=== PATIENT | female | born 1990 | race Two or more races ===

== ENCOUNTER 2024-11-09 12:00 | Emergency (ER) | payer MEDICAID, SELFPAY ==
[2024-11-09 12:01] VITALS: BMI 231.7
[2024-11-09 12:24] VITALS: BP 129/92; PULSE 82; RESP 18; TEMP 36.9; O2SAT 98
--- NOTE | 2024-11-09 12:31 | XR_ITS ---
Examination: Lumbar spine, 5 views Technique: Lumbar spine AP, lateral, coned lateral lower lumbar spine, bilateral obliques 5 views Exam date and time: November 09, 2024 1301 hours INDICATIONS: Low back pain today no injury. FINDINGS: Adequate alignment lumbar vertebral bodies on the lateral view Mild disc narrowing L4-L5, L5-S1 No spondylolisthesis No lumbar fracture IMPRESSION: Mild disc narrowing L4-L5, L5-S1
--- NOTE | 2024-11-09 12:32 | EDNOTE_ITS ---
<Statement entered by Isela Carrington MD - 11/11/24 06:15> As co-signing physician, I was present and available for consult prn. I concur with the plan and care as documented by the midlevel provider. ED Back Injury Pain RME/HPI General Chief Complaint: Back Pain/Injury Stated Complaint: LOWER BACK PAIN TODAY Time Seen by Provider: 11/09/24 12:18 Source: patient Arrival date/time: 11/09/24 12:00 33-year-old female with no known medical history presents to the emergency room with a chief complaint of lumbar back pain after getting out of her car this morning. Mode of arrival: ambulatory Limitations: no limitations Related Data Previous Rx's ?Medication ?Instructions ?Recorded cyclobenzaprine 10 mg tablet 10 mg PO TID #14 tabs Allergies Allergy/AdvReac Type Severity Reaction Status Date / Time No Known Allergies Allergy Verified 11/09/24 12:03 Review of Systems Review of Systems Systems Reviewed: All systems reviewed, normal except as documented Constitutional Constitutional: Reports system reviewed and no additional complaints, except as documented, Denies fatigue, Denies fever(s), Denies headache(s) and Denies weakness Eyes Eyes: Reports system reviewed and no additional complaints, except as documented, Denies blurry vision and Denies change in vision ENT Ears, Nose, Mouth, and Throat: Reports system reviewed and no additional complaints, except as documented, Denies otalgia, Denies headache(s), Denies nasal congestion, Denies throat swelling and Denies vertigo Cardiovascular Cardiovascular: Reports system reviewed and no additional complaints, except as documented, Denies chest pain, Denies dyspnea and Denies dyspnea on exertion Respiratory Respiratory: Reports system reviewed and no additional complaints, except as documented, Denies chest congestion, Denies cough, Denies dyspnea, Denies dyspnea on exertion and Denies wheezing Gastrointestinal Gastrointestinal: Reports system reviewed and no additional complaints, except as documented, Denies abdominal pain, Denies cramping, Denies nausea and Denies vomiting Genitourinary Genitourinary: Reports system reviewed and no additional complaints, except as documented Musculoskeletal Musculoskeletal: Reports system reviewed and no additional complaints, except as documented and Reports back pain Integumentary/Breasts Skin/Breast: Reports system reviewed and no additional complaints, except as documented and Denies wounds Neurologic Neurologic: Reports system reviewed and no additional complaints, except as documented, Denies confusion, Denies headache(s), Denies lack of coordination, Denies vertigo and Denies weakness Psychiatric Psychiatric: Reports system reviewed and no additional complaints, except as documented, Denies anxiety, Denies confusion, Denies depression, Denies paranoia, Denies suicidal ideation and Denies tactile hallucinations Endocrine Endocrine: Reports system reviewed and no additional complaints, except as documented and Denies fatigue Hematologic/Lymphatic Hematologic/Lymphatic: Reports system reviewed and no additional complaints, except as documented and Denies lymphadenopathy Allergic/Immunologic Allergic/Immunologic: Reports system reviewed and no additional complaints, except as documented, Denies throat swelling, Denies urticaria and Denies wheezing Past Medical History Past Medical History CARDIAC: Negative Congestive Heart Failure RESPIRATORY: Negative Chronic Obstructive Pulmonary Disease (COPD) GENITOURINARY: Negative Renal Disease ENDOCRINE: Negative Diabetes Mellitus Type 1 or Diabetes Mellitus Type 2 Social History SMOKING STATUS: Never smoker ED Exam General Limitations: Present no limitations General appearance: Present alert and in no apparent distress Head Head exam: Present atraumatic Eye Eye exam: Present normal appearance, PERRL and EOMI ENT ENT exam: Present normal exam, normal oropharynx and mucous membranes moist Neck Neck exam: Present normal inspection, full ROM and trachea midline Chest Chest inspection: Present normal inspection and symmetric chest wall rise Respiratory Respiratory exam: Present normal lung sounds bilaterally Cardiovascular Cardiovascular exam: Present regular rate, normal rhythm and normal heart sounds Abdominal Exam Abdominal exam: Present soft and normal bowel sounds Extremities Exam Extremities exam: Present normal inspection and full ROM Back Exam Back exam: Present normal inspection, full ROM and vertebral tenderness; Absent CVA tenderness (R), CVA tenderness (L), sciatic notch tenderness (R) or sciatic notch tenderness (L) Neurological Exam Neurological exam: Present alert, oriented X3 and CN II-XII intact Psychiatric Psychiatric exam: Present normal affect and normal mood Skin Skin exam: Present warm, dry, intact and normal color Course Quality Measures none Orders Category Date Time Status XR lumbar spine min 4V Stat Exams 11/09/24 12:31 Completed HCG Qualitative,Urine Stat Lab 11/09/24 12:41 Completed Ketorolac Inj [Toradol Inj] Med 11/09/24 12:54 Discontinued 30 mg IM X1 ONE Vital Signs Vital signs: Vital Signs Temperature 98.4 F 11/09/24 12:24 Pulse Rate 82 11/09/24 12:24 Respiratory Rate 18 11/09/24 12:24 Blood Pressure 129/92 H 11/09/24 12:24 Pulse Oximetry (%) 98 11/09/24 12:24 Oxygen Delivery Method Room Air 11/09/24 12:24 O2 saturation 98% within normal limits Back Pain / Injury MDM Narrative MDM Narrative:: 33-year-old female with no known medical history presents to the emergency room with a chief complaint of lumbar back pain after getting out of her car this morning. Patient is hemodynamically stable and in no apparent distress Physical examination shows tenderness and pain to the patient's lumbar area of her spine. Patient is having difficulty bending over. X-ray of the lumbar spine was completed and shows some mild disc narrowing at L4-L5 as well as L5-S1. Patient was educated to follow-up with her primary care provider for further workup and possibly an MRI/PT Patient was discharged and educated to follow-up with primary care provider in the next 24 to 48 hours and return to the emergency room for any evidence of worsening signs or symptoms Patient data External records reviewed:: [facility] previous records Clinical information provided by:: patient Social determinants that could affect healthcare access:: none Patient has the following chronic illnesses:: No chronic illness How is presenting disease/condition affected by chronic disease/condition?: no chronic disease Evaluation data The following diagnostics were reviewed and interpreted by me:: lab results and radiology exam(s) Lab and/or radiology exams considered but not ordered:: Labs and radiology exams considered and ordered Interpretation Summary: Lumbar spine [id number]: Adequate alignment lumbar vertebral bodies on the lateral view Mild disc narrowing L4-L5, L5-S1 No spondylolisthesis No lumbar fracture IMPRESSION: Mild disc narrowing L4-L5, L5-S1 Medications / Prescriptions Medications or Prescriptions considered but not ordered:: Medication given Medication administrations:: Medication Administration History Discontinued Medications Ketorolac Tromethamine (Ketorolac Inj 60 Mg/2 Ml Vial) 30 mg IM X1 ONE Stop: 11/09/24 12:55 Last Admin: 11/09/24 13:01 Dose: 30 mg Documented By: BRIGIDO Medication given Consultations Consultation(s) initiated? (list below): No Diagnosis Differential diagnosis back pain/injury: lumbar radiculopathy, strain of lumbar region and thoracic back pain Most likely diagnosis given after review of the tests above:: Strain of lumbar region Admission Indicated Admission indicated?: not indicated Admission Request Was there a request for admission?: No Disposition Plan Disposition Plan: Discharge Discharge Attestation Discharge Attestation: The patient and all family members were given an opportunity to ask questions and understood the discharge instructions. Discharge instructions specifically effects, indications for sooner follow up or return to the emergency department, and the expected course of current diagnosis. Patient condition: Stable Discharge Plan Plan Patient Disposition: HOME (Self Care) Discharge Disposition comment: Stable Prescriptions/Referrals Prescriptions/Med Rec: New cyclobenzaprine 10 mg tablet 10 mg PO TID Qty: 14 0RF Referrals: Lawanda Bryant MD [Primary Care Provider] - In 1 week Problem List Clinical Impression: Strain of lumbar region Patient/Caregiver Discharge Instructions Education Materials: ED Back Sprain/Strain Additional Instructions: Please follow-up with your primary care provider in the next 24 to 48 hours. X-rays of your lumbar spine were completed and there is no acute fracture or dislocation. There is some narrowing in the lumbar vertebrae. Please follow-up with your primary care provider for further management as an MRI/PT might be indicated For any evidence of worsening signs or symptoms return to the emergency room immediately Print Language: Australian Stand Alone Forms: Alka Award Info., Work/School Release, Patient Portal Info Letter EDWARD/PAMELA Supervising Physician EDWARD/PAMELA Supervising Physician: Dr. CARRINGTON
[2024-11-09 12:53] LABS: HCG Qualitative,Urine Negative
[2024-11-09] MEDS: KETOROLAC INJ 60 MG/2 ML VIAL 30 MG IM (13:01)
== END 2024-11-09 14:08 | disposition home or self-care (01) ==
PROVIDERS: Nurse Practitioner Family; Emergency Provider Emergency Medicine; PCP Internal Medicine
DX: S39.012A Strain of muscle, fascia and tendon of lower back, initial encounter (principal); M48.061 Spinal stenosis, lumbar region without neurogenic claudication
CPT/HCPCS: 72110; 81025; 96372; 99283; J1885